=== PATIENT | female | born 1975 | race Caucasian/White ===

== ENCOUNTER 2017-04-15 12:21 | Emergency (ER) | payer OTHER ==
[~2017-04-15] VITALS: Ht 149.9 cm; Wt 72.0 kg
[2017-04-15 13:51] VITALS: BP 128/95
== END 2017-04-15 14:24 | disposition home or self-care (01) ==
LOC: EMS 12:28
DX: Z57.2 Occupational exposure to dust (principal); F17.210 Nicotine dependence, cigarettes, uncomplicated
CPT/HCPCS: 99281